=== PATIENT | male | born 1970 | race Two or more races ===

== ENCOUNTER 2023-11-18 03:47 | Emergency (ER) | payer OTHER ==
[~2023-11-18] VITALS: Ht 172.7 cm; Wt 117.9 kg
[2023-11-18] MEDS ORDERED: TOPROL XL25 M1 (04:00)
[2023-11-18] MEDS ORDERED: KETO10TA2 PO (05:07)
[2023-11-18] MEDS ORDERED: VALTREX1000 MG PO (05:07)
[2023-11-18] MEDS ORDERED: ZOVIRAX30 GM TOP ×2 (05:08→05:09)
== END 2023-11-18 05:14 ==
LOC: ER 03:48
DX: B02.9 Zoster without complications (principal); I10 Essential (primary) hypertension